=== PATIENT | male | born 1985 | race Asian ===

== ENCOUNTER 2016-08-21 21:53 | Emergency (ER) | payer OTHER ==
[2016-08-21] MEDS ORDERED: NORCO 5/325MG TABLET (BULK) As Ordered ONE (23:55)
--- NOTE | 2016-08-22 00:01 | EDDOCDS ---
Nurse's Notes [facility] Name: Sarmad Eric Age: 30 yrs Sex: Male : 1985 Arrival Date: 08/21/2016 Time: 21:53 Bed Triage 2 Private MD: NO PRIMARY PHYSICIAN, . Diagnosis: Atypical facial pain-dental cx. Presentation: 08/21 21:57 Presenting complaint: Patient states: tooth ache worse today. Adult Sepsis Screening: rs3 The patient does not have new or worsening altered mentation. Patient's respiratory rate is less than 22. Systolic blood pressure is greater than 100. Patient has a qSOFA score of 0- Negative Sepsis Screen. Suicide/Homicide risk assessment- the patient denies having any suicidal and/or homicidal ideations and does not present with any other emotional, behavioral or mental health complaints. Status: Patient is not a sales agent business services or dependent. Transition of care: patient was not received from another setting of care. 21:57 Acuity: ALEKSANDR Level 5 rs3 21:57 Method Of Arrival: Walkin/Carried/Asstd rs3 Triage Assessment: 21:58 General: Appears in no apparent distress. Pain: Location: mouth. HIV screening NA for rs3 this visit Offered previously. EENT: Reports pain Pain is 7 out of 10 on a pain scale. Historical: - Allergies: no known allergies; - Home Meds: 1. none - PMHx: none; - PSHx: none; - Social history: Smoking status: Patient uses tobacco products, heavy tobacco smoker. No barriers to communication noted, The patient speaks fluent Montserratian. - Family history: Not pertinent. - : The pt / caregiver states he / she is not on anticoagulants. Home medication list is obtained from the patient. - Exposure Risk Screening:: None identified. Screenin:56 Screening information is obtained from the patient. Fall risk: No risks identified. jo3 Assistance ADL's: requires no assistance with activities of daily living. Abuse/DV Screen: The patient / caregiver reports he/she is: not in a situation that causes fear, pain or injury. Nutritional screening: No deficits noted. Advance Directives: There is no active DNR order. home support is adequate. Assessment: 23:35 General: Appears in no apparent distress, comfortable, Behavior is appropriate for age, jo3 cooperative, quiet. Neurological: No deficits noted. Level of Consciousness is awake, alert. Cardiovascular: No deficits noted. Respiratory: Airway is patent Respiratory effort is even, unlabored. Derm: Skin is pink, warm & dry. 23:58 Reassessment: Patient appears in no apparent distress at this time. [facility] Vital Signs: 21:55 BP 154 / 81 RA Sitting (auto/reg); Pulse 111; Resp 18; Temp 99.0(O); Pulse Ox 98% on rs6 R/A; Weight 61.23 kg (R); Height 5 ft. 7 in. (170.18 cm) (R); Pain 9/10; 08/22 00:00 Pulse 98; slm 08/21 21:55 Body Mass Index 21.14 (61.23 kg, 170.18 cm) [facility] Vitals: 02 21:55 Log In Time: August 21, 2016 at 21:55. rs6 ED Course: 21:55 Patient visited by Mariajose Wells PCA. rs6 21:55 NO PRIMARY PHYSICIAN, . is Private Physician. rs6 21:55 Patient moved to Waiting rs6 21:56 Patient visited by Mariajose Wells PCA. rs6 21:56 Patient moved to Pre RCE rs6 21:58 Triage Initiated rs3 23:46 Patient moved to Triage 2 jo3 23:48 Kyle Edwards PA-C is PHCP. cc10 23:48 Hayes Odonnell DO is Attending Physician. cc10 23:50 Patient visited by Kyle Edwards PA-C. cc10 23:50 Patient visited by Kyle Edwards PA-C. cc10 23:54 Your Dentist is Referral Physician. cc10 23:59 The patient / caregiver is instructed regarding the plan of care and ED course. Patient slm has correct armband on for positive identification. Bed in low position. Call light in reach. Side rails up X 1. 23:59 No IV's were initiated during this patient's visit. No procedures done that require slm assistance. Administered Medications: 23:59 Drug: HYDROcodone-acetaminophen 4 pack- 1 packets [hydrocodone 5 mg-acetaminophen 325 slm mg tablet (1 tabs)] {Co-Signature: jo3 (Lorena Monroy RN).} Route: PO; Order Results: There are currently no results for this order. Outcome: 23:54 Discharge ordered by Provider. cc10 23:58 Discharge Assessment: Patient awake, alert and oriented x 3. No cognitive and/or slm functional deficits noted. Patient verbalized understanding of disposition instructions. patient administered narcotics - yes. Pt provided with safe discharge. The following High Risk Discharge criteria are identified: None. Discharged to home ambulatory. Condition: good. Discharge instructions given to patient, Instructed on discharge instructions, follow up and referral plans. medication usage, no driving heavy equipment, Demonstrated understanding of instructions, medications, Pt was receptive of discharge instructions/ teaching. Prescriptions given X 1. No special radiology studies were completed. Property :Personal belongings accompany Pt. 08/22 00:00 Patient left the ED. slm Signatures: Lornea Monroy,RN RN jo3 Tiana ChildRN RN rs3 Alicia Garcia,DEPENDENCY COUNSELOR DEPENDENCY COUNSELOR slm Kyle Edwards, PA-C PA-C cc10 Mariajose Wells, SECURITY INSPECTOR SECURITY INSPECTOR rs6 Lorena Monroy RN jo3 MTDD
--- NOTE | 2016-08-22 00:01 | EDDOCDS ---
Physician Documentation [facility] Name: Sarmad Eric Age: 30 yrs Sex: Male : 1985 Arrival Date: 08/21/2016 Time: 21:53 Bed Triage 2 Private MD: NO PRIMARY PHYSICIAN, . Disposition: 08/21/16 23:54 Discharged to Home/Self Care. Impression: Atypical facial pain - dental cx.. - Condition is Stable. - Discharge Instructions: Dental Pain. - Prescriptions for Hydrocodone- Acetaminophen 5-325 mg Oral Tablet - take 1 tablet by ORAL route every 6 hours As needed MDD: 4 tabs; 20 tablet. - Medication Reconciliation form. - Follow up: Your, Dentist; When: Call to arrange an appointment; Reason: Wound/Symptom Recheck, Recheck today's complaints, Worsening of conditions, Continuance of care. - Problem is an ongoing problem. - Symptoms are unchanged. Historical: - Allergies: no known allergies; - Home Meds: 1. none - PMHx: none; - PSHx: none; - Social history: Smoking status: Patient uses tobacco products, heavy tobacco smoker. No barriers to communication noted, The patient speaks fluent Tajik. - Family history: Not pertinent. - : The pt / caregiver states he / she is not on anticoagulants. Home medication list is obtained from the patient. - Exposure Risk Screening:: None identified. Vital Signs: 08/21 21:55 BP 154 / 81 RA Sitting (auto/reg); Pulse 111; Resp 18; Temp 99.0(O); Pulse Ox 98% on rs6 R/A; Weight 61.23 kg / 134.99 lbs (R); Height 5 ft. 7 in. (170.18 cm) (R); Pain 9/10; 08/22 00:00 Pulse 98; slm 08/21 21:55 Body Mass Index 21.14 (61.23 kg, 170.18 cm) rs6 MDM: 08/21 23:53 HYDROcodone-acetaminophen 4 pack- 5 mg-325 mg 1 packets PO Per package directions; cc10 Dispense with patient. 1 po q4h prn for pain ordered. Administered Medications: 23:59 Drug: HYDROcodone-acetaminophen 4 pack- 1 packets [hydrocodone 5 mg-acetaminophen 325 slm mg tablet (1 tabs)] {Co-Signature: jo3 (Lorena Monroy RN).} Route: PO; Signatures: Tiana Child,RN RN rs3 Alicia Garcia,SOAKER HELPER SOAKER HELPER Kyle Storm, PAEsterC PAEsterC cc10 Lorena Monroy RN jo3 MTDD
--- NOTE | 2016-08-24 01:01 | EDDOCDS ---
Physician Documentation [facility] Name: Sarmad Eric Age: 30 yrs Sex: Male : 1985 Arrival Date: 08/21/2016 Time: 21:53 Bed Triage 2 Private MD: NO PRIMARY PHYSICIAN, . Disposition: 08/21/16 23:54 Discharged to Home/Self Care. Impression: Atypical facial pain - dental cx.. - Condition is Stable. - Discharge Instructions: Dental Pain. - Prescriptions for Hydrocodone- Acetaminophen 5-325 mg Oral Tablet - take 1 tablet by ORAL route every 6 hours As needed MDD: 4 tabs; 20 tablet. - Medication Reconciliation form. - Follow up: Your, Dentist; When: Call to arrange an appointment; Reason: Wound/Symptom Recheck, Recheck today's complaints, Worsening of conditions, Continuance of care. - Problem is an ongoing problem. - Symptoms are unchanged. Historical: - Allergies: no known allergies; - Home Meds: 1. none - PMHx: none; - PSHx: none; - Social history: Smoking status: Patient uses tobacco products, heavy tobacco smoker. No barriers to communication noted, The patient speaks fluent Nepali. - Family history: Not pertinent. - : The pt / caregiver states he / she is not on anticoagulants. Home medication list is obtained from the patient. - Exposure Risk Screening:: None identified. Vital Signs: 08/21 21:55 BP 154 / 81 RA Sitting (auto/reg); Pulse 111; Resp 18; Temp 99.0(O); Pulse Ox 98% on rs6 R/A; Weight 61.23 kg / 134.99 lbs (R); Height 5 ft. 7 in. (170.18 cm) (R); Pain 9/10; 08/22 00:00 Pulse 98; slm 08/21 21:55 Body Mass Index 21.14 (61.23 kg, 170.18 cm) rs6 MDM: 08/21 23:53 HYDROcodone-acetaminophen 4 pack- 5 mg-325 mg 1 packets PO Per package directions; cc10 Dispense with patient. 1 po q4h prn for pain ordered. 08/22 00:[address] [facility] 00:26 [facility] Payment Agreement was scanned into [employer] and attached to record. [facility] 12:33 T-Sheet-- Draft Copy was scanned into [employer] and attached to record. gb Administered Medications: 08/21 23:59 Drug: HYDROcodone-acetaminophen 4 pack- 1 packets [hydrocodone 5 mg-acetaminophen 325 slm mg tablet (1 tabs)] {Co-Signature: jo3 (Lorena Monroy RN).} Route: PO; Signatures: Faith Sun, Reg Reg Tiana Roberson RN RN rs3 Alicia Garcia LPN FIRER HELPER slKyle Cuenca, PA-C PA-C cc10 Brianna [address] [facility] Lorena Monroy RN jo3 The chart was reviewed and I authenticate all verbal orders and agree with the evaluation and treatment provided.Attachments: 08/22 00:26 [facility] Payment Agreement [facility] 12:33 T-Sheet-- Draft Copy Chart Complete MTDD
--- NOTE | 2016-08-24 01:01 | EDDOCDS ---
Nurse's Notes [facility] Name: Sarmad Eric Age: 30 yrs Sex: Male : 1985 Arrival Date: 08/21/2016 Time: 21:53 Bed Triage 2 Private MD: NO PRIMARY PHYSICIAN, . Diagnosis: Atypical facial pain-dental cx. Presentation: 08/21 21:57 Presenting complaint: Patient states: tooth ache worse today. Adult Sepsis Screening: rs3 The patient does not have new or worsening altered mentation. Patient's respiratory rate is less than 22. Systolic blood pressure is greater than 100. Patient has a qSOFA score of 0- Negative Sepsis Screen. Suicide/Homicide risk assessment- the patient denies having any suicidal and/or homicidal ideations and does not present with any other emotional, behavioral or mental health complaints. Status: Patient is not a fire sprinkler service technician or dependent. Transition of care: patient was not received from another setting of care. 21:57 Acuity: ALEKSANDR Level 5 rs3 21:57 Method Of Arrival: Walkin/Carried/Asstd rs3 Triage Assessment: 21:58 General: Appears in no apparent distress. Pain: Location: mouth. HIV screening NA for rs3 this visit Offered previously. EENT: Reports pain Pain is 7 out of 10 on a pain scale. Historical: - Allergies: no known allergies; - Home Meds: 1. none - PMHx: none; - PSHx: none; - Social history: Smoking status: Patient uses tobacco products, heavy tobacco smoker. No barriers to communication noted, The patient speaks fluent Mozambican. - Family history: Not pertinent. - : The pt / caregiver states he / she is not on anticoagulants. Home medication list is obtained from the patient. - Exposure Risk Screening:: None identified. Screenin:56 Screening information is obtained from the patient. Fall risk: No risks identified. jo3 Assistance ADL's: requires no assistance with activities of daily living. Abuse/DV Screen: The patient / caregiver reports he/she is: not in a situation that causes fear, pain or injury. Nutritional screening: No deficits noted. Advance Directives: There is no active DNR order. home support is adequate. Assessment: 23:35 General: Appears in no apparent distress, comfortable, Behavior is appropriate for age, jo3 cooperative, quiet. Neurological: No deficits noted. Level of Consciousness is awake, alert. Cardiovascular: No deficits noted. Respiratory: Airway is patent Respiratory effort is even, unlabored. Derm: Skin is pink, warm & dry. 23:58 Reassessment: Patient appears in no apparent distress at this time. [facility] Vital Signs: 21:55 BP 154 / 81 RA Sitting (auto/reg); Pulse 111; Resp 18; Temp 99.0(O); Pulse Ox 98% on rs6 R/A; Weight 61.23 kg (R); Height 5 ft. 7 in. (170.18 cm) (R); Pain 9/10; 08/22 00:00 Pulse 98; slm 08/21 21:55 Body Mass Index 21.14 (61.23 kg, 170.18 cm) [facility] Vitals: 02 21:55 Log In Time: August 21, 2016 at 21:55. rs6 ED Course: 21:55 Patient visited by Mariajose Wells PCA. rs6 21:55 NO PRIMARY PHYSICIAN, . is Private Physician. rs6 21:55 Patient moved to Waiting rs6 21:56 Patient visited by Mariajose Wells PCA. rs6 21:56 Patient moved to Pre RCE rs6 21:58 Triage Initiated rs3 23:46 Patient moved to Triage 2 jo3 23:48 Kyle Edwards PA-C is PHCP. cc10 23:48 Hayes Odonnell DO is Attending Physician. cc10 23:50 Patient visited by Kyle Edwards PA-C. cc10 23:50 Patient visited by Kyle Edwards PA-C. cc10 23:54 Your Dentist is Referral Physician. cc10 23:59 The patient / caregiver is instructed regarding the plan of care and ED course. Patient slm has correct armband on for positive identification. Bed in low position. Call light in reach. Side rails up X 1. 23:59 No IV's were initiated during this patient's visit. No procedures done that require slm assistance. 08/22 00:26 [facility] Payment Agreement was scanned into [employer] and attached to record. [facility] 12:33 T-Sheet-- Draft Copy was scanned into [employer] and attached to record. gb Administered Medications: 08/21 23:59 Drug: HYDROcodone-acetaminophen 4 pack- 1 packets [hydrocodone 5 mg-acetaminophen 325 slm mg tablet (1 tabs)] {Co-Signature: ambrosio (Lorena Monroy RN).} Route: PO; Order Results: There are currently no results for this order. Outcome: 23:54 Discharge ordered by Provider. cc10 23:58 Discharge Assessment: Patient awake, alert and oriented x 3. No cognitive and/or slm functional deficits noted. Patient verbalized understanding of disposition instructions. patient administered narcotics - yes. Pt provided with safe discharge. The following High Risk Discharge criteria are identified: None. Discharged to home ambulatory. Condition: good. Discharge instructions given to patient, Instructed on discharge instructions, follow up and referral plans. medication usage, no driving heavy equipment, Demonstrated understanding of instructions, medications, Pt was receptive of discharge instructions/ teaching. Prescriptions given X 1. No special radiology studies were completed. Property :Personal belongings accompany Pt. 08/22 00:00 Patient left the ED. slm Signatures: Faith Sun, Reg Reg Lorena Osei,MARGOTH RN jo3 Tiana ChildRN RN rs3 Alicia Garcia,BI MANAGER BI MANAGER slm Kyle Edwards, PA-C PA-C cc10 Brianna Barfield Rebecca, HAIR DESIGNER HAIR DESIGNER rs6 Lorena Monroy RN jo3 Chart Complete MTDGeovanny
--- NOTE | 2016-08-24 01:01 | EDDOCDS ---
Physician Documentation [facility] Name: Sarmad Eric Age: 30 yrs Sex: Male : 1985 Arrival Date: 08/21/2016 Time: 21:53 Bed Triage 2 Private MD: NO PRIMARY PHYSICIAN, . Disposition: 08/21/16 23:54 Discharged to Home/Self Care. Impression: Atypical facial pain - dental cx.. - Condition is Stable. - Discharge Instructions: Dental Pain. - Prescriptions for Hydrocodone- Acetaminophen 5-325 mg Oral Tablet - take 1 tablet by ORAL route every 6 hours As needed MDD: 4 tabs; 20 tablet. - Medication Reconciliation form. - Follow up: Your, Dentist; When: Call to arrange an appointment; Reason: Wound/Symptom Recheck, Recheck today's complaints, Worsening of conditions, Continuance of care. - Problem is an ongoing problem. - Symptoms are unchanged. Historical: - Allergies: no known allergies; - Home Meds: 1. none - PMHx: none; - PSHx: none; - Social history: Smoking status: Patient uses tobacco products, heavy tobacco smoker. No barriers to communication noted, The patient speaks fluent Italian. - Family history: Not pertinent. - : The pt / caregiver states he / she is not on anticoagulants. Home medication list is obtained from the patient. - Exposure Risk Screening:: None identified. Vital Signs: 08/21 21:55 BP 154 / 81 RA Sitting (auto/reg); Pulse 111; Resp 18; Temp 99.0(O); Pulse Ox 98% on rs6 R/A; Weight 61.23 kg / 134.99 lbs (R); Height 5 ft. 7 in. (170.18 cm) (R); Pain 9/10; 08/22 00:00 Pulse 98; slm 08/21 21:55 Body Mass Index 21.14 (61.23 kg, 170.18 cm) rs6 MDM: 08/21 23:53 HYDROcodone-acetaminophen 4 pack- 5 mg-325 mg 1 packets PO Per package directions; cc10 Dispense with patient. 1 po q4h prn for pain ordered. 08/22 00:26 Financial registration complete. [facility] 00:26 [facility] Payment Agreement was scanned into [employer] and attached to record. [facility] 12:33 T-Sheet-- Draft Copy was scanned into [employer] [place] and attached to record. gb Administered Medications: 08/21 23:59 Drug: HYDROcodone-acetaminophen 4 pack- 1 packets [hydrocodone 5 mg-acetaminophen 325 slm mg tablet (1 tabs)] {Co-Signature: jo3 (Lorena Monroy RN).} Route: PO; Signatures: Faith Sun, Reg Reg Tiana Roberson RN RN rs3 Alicia Garcia LPN DELIVERY ARCHITECT slKyle Cuenca, PA-C PA-C cc10 Brianna Barfield [facility] Lorena Monroy RN jo3 The chart was reviewed and I authenticate all verbal orders and agree with the evaluation and treatment provided.Attachments: 08/22 00:26 [facility] [place] [facility] Payment Agreement [facility] 12:33 T-Sheet-- Draft Copy Chart Complete MTDD
== END 2016-08-22 | disposition home or self-care (01) ==
LOC: M ED 21:53
DX: G50.1 Atypical facial pain (principal); S02.5XXA Fracture of tooth (traumatic), initial encounter for closed fracture; X58.XXXA Exposure to other specified factors, initial encounter; Y92.89 Other specified places as the place of occurrence of the external cause; Y93.89 Activity, other specified; Y99.8 Other external cause status; F17.210 Nicotine dependence, cigarettes, uncomplicated

== ENCOUNTER 2016-09-14 23:09 | Emergency (ER) | payer OTHER ==
[2016-09-14] MEDS ORDERED: NAPROXEN 250 MG TAB As Ordered ONE (23:39)
[2016-09-14] MEDS ORDERED: AMOXICILLIN 500 MG CAP As Ordered ONE (23:39)
--- NOTE | 2016-09-14 23:45 | EDDOCDS ---
Physician Documentation [facility] Name: Sarmad Eric Age: 30 yrs Sex: Male : 1985 Arrival Date: 09/14/2016 Time: 23:09 Bed Triage 3 Private MD: Brant Griffin W Disposition: 09/14/16 23:33 Discharged to Home/Self Care. Impression: Dental caries. - Condition is Stable. - Discharge Instructions: Dental Pain. - Prescriptions for Amoxicillin 500 mg Oral Capsule - take 1 capsule by ORAL route every 8 hours for 10 days; 30 tablet. Naprosyn 500 mg Oral Tablet - take 1 tablet by ORAL route 2 times per day take with food; 30 tablet. - Medication Reconciliation, Local Pharmacy Hours form. - Follow up: Your, Dentist; When: 2 - 3 days; Reason: Recheck today's complaints, Continuance of care. - Problem is new. - Symptoms have improved. Historical: - Allergies: No known drug Allergies; - Home Meds: 1. none - PMHx: none; - PSHx: none; - Social history: Smoking status: Patient uses tobacco products, light tobacco smoker. No barriers to communication noted, The patient speaks fluent Serbian, Speaks appropriately for age. - Family history: Not pertinent. - : The pt / caregiver states he / she is not on anticoagulants. Home medication list is obtained from the patient. - Exposure Risk Screening:: None identified. Vital Signs: 09/14 23:11 BP 135 / 102; Pulse 83; Resp 16; Temp 96.5(O); Pulse Ox 100% on R/A; Weight 61.23 kg / lr2 134.99 lbs (R); Height 5 ft. 6 in. (167.64 cm) (R); Pain 10/10; 23:42 BP 138 / 88; jo3 23:11 Body Mass Index 21.79 (61.23 kg, 167.64 cm) lr2 MDM: 23:32 Naproxen 500 mg PO once; administer with food or milk ordered. ck7 23:32 Amoxicillin 500 mg PO once ordered. ck7 23:42 Financial registration complete. hs2 Administered Medications: 23:42 Drug: Naproxen 500 mg [naproxen 250 mg tablet (2 tabs)] Route: PO; jo3 23:42 Drug: Amoxicillin 500 mg [amoxicillin 500 mg capsule (1 caps)] Route: PO; jo3 Signatures: Lorena Monroy,RN RN jo3 Cornelio Phillips, RPA-C RPA-[id number] Anamaria Choe, Reg Reg hs2 MTDD
--- NOTE | 2016-09-14 23:45 | EDDOCDS ---
Nurse's Notes [facility] Name: Sarmad Eric Age: 30 yrs Sex: Male : 1985 Arrival Date: 09/14/2016 Time: 23:09 Bed Triage 3 Private MD: Brant Griffin W Diagnosis: Dental caries Presentation: 09/14 23:18 Presenting complaint: Patient states: Left lower toothache that is ongoing. awaiting jo3 visit with oral surgeon. Adult Sepsis Screening: The patient does not have new or worsening altered mentation. Patient's respiratory rate is less than 22. Systolic blood pressure is greater than 100. Patient has a qSOFA score of 0- Negative Sepsis Screen. Suicide/Homicide risk assessment- the patient denies having any suicidal and/or homicidal ideations and does not present with any other emotional, behavioral or mental health complaints. Status: Patient is not a health services director or dependent. Transition of care: patient was not received from another setting of care. 23:18 Acuity: ALEKSANDR Level 5 jo3 23:18 Method Of Arrival: Walkin/Carried/Asstd jo3 Triage Assessment: 23:19 General: Appears uncomfortable. Pain: Pain currently is 10 out of 10 on a pain scale. jo3 HIV screening NA for this visit Offered previously. Neurological: Level of Consciousness is awake, alert, Oriented to person, place, time. Historical: - Allergies: No known drug Allergies; - Home Meds: 1. none - PMHx: none; - PSHx: none; - Social history: Smoking status: Patient uses tobacco products, light tobacco smoker. No barriers to communication noted, The patient speaks fluent Nepali, Speaks appropriately for age. - Family history: Not pertinent. - : The pt / caregiver states he / she is not on anticoagulants. Home medication list is obtained from the patient. - Exposure Risk Screening:: None identified. Screenin:42 Screening information is obtained from the patient. Fall risk: No risks identified. jo3 Assistance ADL's: requires no assistance with activities of daily living. Abuse/DV Screen: The patient / caregiver reports he/she is: not in a situation that causes fear, pain or injury. Nutritional screening: No deficits noted. Advance Directives: There is no active DNR order. home support is adequate. Assessment: 23:22 Adult Sepsis Screening: The patient does not have new or worsening altered mentation. lf1 Patient's respiratory rate is less than 22. Systolic blood pressure is greater than 100. Patient has a qSOFA score of 0- Negative Sepsis Screen. General: [facility] is Dentist, pt. reports he has two broken teeth that need to be pulled and is waiting for a call back from the to be seen. . General: Appears uncomfortable. Pain: Location: dental Pain currently is 10 out of 10 on a pain scale. Neurological: Level of Consciousness is awake, alert. Respiratory: Respiratory effort is even, unlabored. GI: Denies nausea, vomiting. : No deficits noted. Derm: Skin is normal. 23:42 Reassessment: Patient appears in no apparent distress at this time. Discharged at this jo3 time . Vital Signs: 23:11 BP 135 / 102; Pulse 83; Resp 16; Temp 96.5(O); Pulse Ox 100% on R/A; Weight 61.23 kg lr2 (R); Height 5 ft. 6 in. (167.64 cm) (R); Pain 10/10; 23:42 BP 138 / 88; jo3 23:11 Body Mass Index 21.79 (61.23 kg, 167.64 cm) lr2 Vitals: 23:11 Log In Time: September 14, 2016 at 23:09. lr2 ED Course: 23:10 Patient visited by Sivan Devlin. lr2 23:10 Patient moved to Waiting lr2 23:12 Brant Griffin is Private Physician. lr2 23:14 Patient moved to Pre RCE lr2 23:19 Patient visited by Lorena Monroy RN. jo3 23:19 Triage Initiated jo3 23:19 Patient moved to Triage 3 jo3 23:21 Cornelio Phillips RPA-C is PHCP. ck7 23:21 Amadou Alberto DO is Attending Physician. ck7 23:21 Patient visited by Cornelio Phillips RPA-C. ck7 23:21 Patient visited by Hilda Baig,MARGOTH. lf1 23:23 Patient visited by Hilda Baig,MARGOTH. lf1 23:32 Your, Dentist is Referral Physician. ck7 23:42 The patient / caregiver is instructed regarding the plan of care and ED course. jo3 23:42 No IV's were initiated during this patient's visit. No procedures done that require jo3 assistance. Administered Medications: 23:42 Drug: Naproxen 500 mg [naproxen 250 mg tablet (2 tabs)] Route: PO; jo3 23:42 Drug: Amoxicillin 500 mg [amoxicillin 500 mg capsule (1 caps)] Route: PO; jo3 Order Results: There are currently no results for this order. Outcome: 23:33 Discharge ordered by Provider. ck7 23:42 Discharge Assessment: Patient awake, alert and oriented x 3. No cognitive and/or jo3 functional deficits noted. Patient verbalized understanding of disposition instructions. patient administered narcotics - no. The following High Risk Discharge criteria are identified: None. Discharged to home ambulatory. Condition: stable. No special radiology studies were completed. Property sent home with patient. 23:43 Patient left the ED. jo3 Signatures: Lorena MonroyRN RN jo3 Hilda Baig RN RN lf1 Cornelio Phillips, MARY-C RPA-Cck7 Sivan Devlin KENIA
--- NOTE | 2016-09-17 00:45 | EDDOCDS ---
Physician Documentation [facility] Name: Sarmad Eric Age: 30 yrs Sex: Male : 1985 Arrival Date: 09/14/2016 Time: 23:09 Bed Triage 3 Private MD: Brant Griffin W Disposition: 09/14/16 23:33 Discharged to Home/Self Care. Impression: Dental caries. - Condition is Stable. - Discharge Instructions: Dental Pain. - Prescriptions for Amoxicillin 500 mg Oral Capsule - take 1 capsule by ORAL route every 8 hours for 10 days; 30 tablet. Naprosyn 500 mg Oral Tablet - take 1 tablet by ORAL route 2 times per day take with food; 30 tablet. - Medication Reconciliation, Local Pharmacy Hours form. - Follow up: Your, Dentist; When: 2 - 3 days; Reason: Recheck today's complaints, Continuance of care. - Problem is new. - Symptoms have improved. Historical: - Allergies: No known drug Allergies; - Home Meds: 1. none - PMHx: none; - PSHx: none; - Social history: Smoking status: Patient uses tobacco products, light tobacco smoker. No barriers to communication noted, The patient speaks fluent Turkish, Speaks appropriately for age. - Family history: Not pertinent. - : The pt / caregiver states he / she is not on anticoagulants. Home medication list is obtained from the patient. - Exposure Risk Screening:: None identified. Vital Signs: 09/14 23:11 BP 135 / 102; Pulse 83; Resp 16; Temp 96.5(O); Pulse Ox 100% on R/A; Weight 61.23 kg / lr2 134.99 lbs (R); Height 5 ft. 6 in. (167.64 cm) (R); Pain 10/10; 23:42 BP 138 / 88; jo3 23:11 Body Mass Index 21.79 (61.23 kg, 167.64 cm) lr2 MDM: 23:32 Naproxen 500 mg PO once; administer with food or milk ordered. ck7 23:32 Amoxicillin 500 mg PO once ordered. ck7 23:42 Financial registration complete. hs2 09/15 02:21 [facility] Payment Agreement was scanned into [email or web address] and attached to record. hs2 10:24 T-Sheet-- Draft Copy was scanned into [email or web address] and attached to record. gb Administered Medications: 09/14 23:42 Drug: Naproxen 500 mg [naproxen 250 mg tablet (2 tabs)] Route: PO; jo3 23:42 Drug: Amoxicillin 500 mg [amoxicillin 500 mg capsule (1 caps)] Route: PO; jo3 Signatures: Faith Sun, Reg Reg gb Lorena Monroy RN RN jo3 Cornelio Phillips, RPA-C RPA-Cck7 Anamaria Choe, Reg Reg hs2 The chart was reviewed and I authenticate all verbal orders and agree with the evaluation and treatment provided.Attachments: 09/15 02:21 [facility] Payment Agreement hs2 10:24 T-Sheet-- Draft Copy Chart Complete MTDD
--- NOTE | 2016-09-17 00:45 | EDDOCDS ---
Nurse's Notes [facility] Name: Sarmad Eric Age: 30 yrs Sex: Male : 1985 Arrival Date: 09/14/2016 Time: 23:09 Bed Triage 3 Private MD: Brant Griffin W Diagnosis: Dental caries Presentation: 09/14 23:18 Presenting complaint: Patient states: Left lower toothache that is ongoing. awaiting jo3 visit with oral surgeon. Adult Sepsis Screening: The patient does not have new or worsening altered mentation. Patient's respiratory rate is less than 22. Systolic blood pressure is greater than 100. Patient has a qSOFA score of 0- Negative Sepsis Screen. Suicide/Homicide risk assessment- the patient denies having any suicidal and/or homicidal ideations and does not present with any other emotional, behavioral or mental health complaints. Status: Patient is not a social service director or dependent. Transition of care: patient was not received from another setting of care. 23:18 Acuity: ALEKSANDR Level 5 jo3 23:18 Method Of Arrival: Walkin/Carried/Asstd jo3 Triage Assessment: 23:19 General: Appears uncomfortable. Pain: Pain currently is 10 out of 10 on a pain scale. jo3 HIV screening NA for this visit Offered previously. Neurological: Level of Consciousness is awake, alert, Oriented to person, place, time. Historical: - Allergies: No known drug Allergies; - Home Meds: 1. none - PMHx: none; - PSHx: none; - Social history: Smoking status: Patient uses tobacco products, light tobacco smoker. No barriers to communication noted, The patient speaks fluent Sami, Speaks appropriately for age. - Family history: Not pertinent. - : The pt / caregiver states he / she is not on anticoagulants. Home medication list is obtained from the patient. - Exposure Risk Screening:: None identified. Screenin:42 Screening information is obtained from the patient. Fall risk: No risks identified. jo3 Assistance ADL's: requires no assistance with activities of daily living. Abuse/DV Screen: The patient / caregiver reports he/she is: not in a situation that causes fear, pain or injury. Nutritional screening: No deficits noted. Advance Directives: There is no active DNR order. home support is adequate. Assessment: 23:22 Adult Sepsis Screening: The patient does not have new or worsening altered mentation. lf1 Patient's respiratory rate is less than 22. Systolic blood pressure is greater than 100. Patient has a qSOFA score of 0- Negative Sepsis Screen. General: [facility] is Dentist, pt. reports he has two broken teeth that need to be pulled and is waiting for a call back from the to be seen. . General: Appears uncomfortable. Pain: Location: dental Pain currently is 10 out of 10 on a pain scale. Neurological: Level of Consciousness is awake, alert. Respiratory: Respiratory effort is even, unlabored. GI: Denies nausea, vomiting. : No deficits noted. Derm: Skin is normal. 23:42 Reassessment: Patient appears in no apparent distress at this time. Discharged at this jo3 time . Vital Signs: 23:11 BP 135 / 102; Pulse 83; Resp 16; Temp 96.5(O); Pulse Ox 100% on R/A; Weight 61.23 kg lr2 (R); Height 5 ft. 6 in. (167.64 cm) (R); Pain 10/10; 23:42 BP 138 / 88; jo3 23:11 Body Mass Index 21.79 (61.23 kg, 167.64 cm) lr2 Vitals: 23:11 Log In Time: September 14, 2016 at 23:09. lr2 ED Course: 23:10 Patient visited by Sivan Devlin. lr2 23:10 Patient moved to Waiting lr2 23:12 Brant Griffin is Private Physician. lr2 23:14 Patient moved to Pre RCE lr2 23:19 Patient visited by Lorena Monroy RN. jo3 23:19 Triage Initiated jo3 23:19 Patient moved to Triage 3 jo3 23:21 Cornelio Phillips RPA-C is PHCP. ck7 23:21 Amadou Alberto DO is Attending Physician. ck7 23:21 Patient visited by Cornelio Phillips RPA-C. ck7 23:21 Patient visited by Hilda Baig,MARGOTH. lf1 23:23 Patient visited by Hilda Baig,MARGOTH. lf1 23:32 Your, Dentist is Referral Physician. ck7 23:42 The patient / caregiver is instructed regarding the plan of care and ED course. jo3 23:42 No IV's were initiated during this patient's visit. No procedures done that require jo3 assistance. 09/15 02:21 [facility] Payment Agreement was scanned into [employer] and attached to record. hs2 10:24 T-Sheet-- Draft Copy was scanned into [employer] and attached to record. gb Administered Medications: 09/14 23:42 Drug: Naproxen 500 mg [naproxen 250 mg tablet (2 tabs)] Route: PO; jo3 23:42 Drug: Amoxicillin 500 mg [amoxicillin 500 mg capsule (1 caps)] Route: PO; jo3 Order Results: There are currently no results for this order. Outcome: 23:33 Discharge ordered by Provider. ck7 23:42 Discharge Assessment: Patient awake, alert and oriented x 3. No cognitive and/or jo3 functional deficits noted. Patient verbalized understanding of disposition instructions. patient administered narcotics - no. The following High Risk Discharge criteria are identified: None. Discharged to home ambulatory. Condition: stable. No special radiology studies were completed. Property sent home with patient. 23:43 Patient left the ED. jo3 Signatures: Faith Sun, Reg Reg gb Lorena MonroyRN RN jo3 Hilda Baig,RN RN lf1 Cornelio Phillips, RPA-C RPA-Cck7 Anamaria Choe, Reg Reg hs2 Sivan Devlin lr2 Chart Complete MTDD
--- NOTE | 2016-09-17 00:45 | EDDOCDS ---
Physician Documentation [facility] Name: Sarmad Eric Age: 30 yrs Sex: Male : 1985 Arrival Date: 09/14/2016 Time: 23:09 Bed Triage 3 Private MD: Brant Griffin W Disposition: 09/14/16 23:33 Discharged to Home/Self Care. Impression: Dental caries. - Condition is Stable. - Discharge Instructions: Dental Pain. - Prescriptions for Amoxicillin 500 mg Oral Capsule - take 1 capsule by ORAL route every 8 hours for 10 days; 30 tablet. Naprosyn 500 mg Oral Tablet - take 1 tablet by ORAL route 2 times per day take with food; 30 tablet. - Medication Reconciliation, Local Pharmacy Hours form. - Follow up: Your, Dentist; When: 2 - 3 days; Reason: Recheck today's complaints, Continuance of care. - Problem is new. - Symptoms have improved. Historical: - Allergies: No known drug Allergies; - Home Meds: 1. none - PMHx: none; - PSHx: none; - Social history: Smoking status: Patient uses tobacco products, light tobacco smoker. No barriers to communication noted, The patient speaks fluent Georgian, Speaks appropriately for age. - Family history: Not pertinent. - : The pt / caregiver states he / she is not on anticoagulants. Home medication list is obtained from the patient. - Exposure Risk Screening:: None identified. Vital Signs: 09/14 23:11 BP 135 / 102; Pulse 83; Resp 16; Temp 96.5(O); Pulse Ox 100% on R/A; Weight 61.23 kg / lr2 134.99 lbs (R); Height 5 ft. 6 in. (167.64 cm) (R); Pain 10/10; 23:42 BP 138 / 88; jo3 23:11 Body Mass Index 21.79 (61.23 kg, 167.64 cm) lr2 MDM: 23:32 Naproxen 500 mg PO once; administer with food or milk ordered. ck7 23:32 Amoxicillin 500 mg PO once ordered. ck7 23:42 Financial registration complete. hs2 09/15 02:21 [facility] Payment Agreement was scanned into [employer] and attached to record. hs2 10:24 T-Sheet-- Draft Copy was scanned into [employer] and attached to record. gb Administered Medications: 09/14 23:42 Drug: Naproxen 500 mg [naproxen 250 mg tablet (2 tabs)] Route: PO; jo3 23:42 Drug: Amoxicillin 500 mg [amoxicillin 500 mg capsule (1 caps)] Route: PO; jo3 Signatures: Faith Sun, Reg Reg gb Lorena Monroy RN RN jo3 Cornelio Phillips, RPA-C RPA-Cck7 Anamaria Choe, Reg Reg hs2 The chart was reviewed and I authenticate all verbal orders and agree with the evaluation and treatment provided.Attachments: 09/15 02:21 [facility] [place] Payment Agreement hs2 10:24 T-Sheet-- Draft Copy Chart Complete MTDD
== END 2016-09-14 23:43 | disposition home or self-care (01) ==
LOC: M ED 23:09
DX: K02.9 Dental caries, unspecified (principal); F17.210 Nicotine dependence, cigarettes, uncomplicated